=== PATIENT | female | born 1995 | race Hispanic/Latino ===

== ENCOUNTER 2019-04-08 21:33 | Emergency (ER) | payer OTHER ==
--- OUTSIDE RECORDS SUMMARY | 2019-04-08 21:35 | XMS REPORT ---
:1995 Author Organization eClinicalWorks Care Team Providers Name Role Phone Yumiko Alexander Provider Role Unavailable Allergies, Adverse Reactions, Alerts Substance Reaction Event Type N.K.D.A. Info Not Available Non Drug Allergy Problems Problem Type Condition Code Onset Dates Condition Status Assessment Routine gynecological examination Z01.419 Active Problem Irregular menses N92.6 Active Assessment BCP ( control pills) Z30.011 Active initiation Medications No Known Medications Results Name Result Date Reference Range Unit Abnormality Flag TEST URINE Summary Purpose eClinicalWorks Submission
--- OUTSIDE RECORDS SUMMARY | 2019-04-08 21:35 | XMS REPORT ---
:1995 Author Organization e[employer]Works Care Team Providers Name Role Phone Yumiko Alexander Provider Role Unavailable Allergies No Known Allergies Problems Problem Type Condition Code Onset Dates Condition Status Problem Irregular menses N92.6 Active Medications No Known Medications Results No Known Results Summary Purpose eClinicalWorks Submission
--- NOTE | 2019-04-08 23:20 | ER ---
Nurse's Notes [facility] Name: Debra Simms Age: 23 yrs Sex: Female : 1995 Arrival Date: 04/08/2019 Time: 21:35 Bed 12 Private MD: Diagnosis: Pain in right wrist Presentation: 04/08 21:40 Presenting complaint: Patient states: R wrist pain sustained from a fall 2 days ago. ca1 Limited ROM and swelling on R wrist noted. Transition of care: patient was not received from another setting of care. Onset of symptoms was April 08, 2019. Risk Assessment: Do you want to hurt yourself or someone else? Patient reports no desire to harm self or others. Initial Sepsis Screen: Does the patient meet any 2 criteria? No. Patient's initial sepsis screen is negative. Does the patient have a suspected source of infection? No. Patient's initial sepsis screen is negative. Care prior to arrival: None. 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 - Social history:: Smoking status: Patient/guardian denies using tobacco. - Ebola Screening: : Patient negative for fever greater than or equal to 101.5 degrees Fahrenheit, and additional compatible Ebola Virus Disease symptoms Patient denies exposure to infectious person Patient denies travel to an Ebola-affected area in the 21 days before illness onset No symptoms or risks identified at this time. Screenin:58 Abuse screen: Denies threats or abuse. Denies injuries from another. Nutritional aa1 screening: No deficits noted. Tuberculosis screening: No symptoms or risk factors identified. Fall Risk None identified. Assessment: 21:58 General: Appears in no apparent distress. comfortable, Behavior is calm, cooperative, aa1 appropriate for age. Pain: Complains of pain in dorsal aspect of right wrist Pain began 2-3 days ago. Is continuous. Neuro: Level of Consciousness is awake, alert, obeys commands, Oriented to person, place, time, situation, Moves all extremities. Full function Gait is steady. Cardiovascular: Pulses are palpable in right radial artery and left radial artery. Respiratory: Airway is patent Respiratory effort is even, unlabored, Respiratory pattern is regular, symmetrical. GI: No signs and/or symptoms were reported involving the gastrointestinal system. : No signs and/or symptoms were reported regarding the genitourinary system. EENT: No signs and/or symptoms were reported regarding the EENT system. Derm: Skin is intact, is healthy with good turgor, Skin is pink, warm \T\ dry. Musculoskeletal: Circulation, motion, and sensation intact. Capillary refill < 3 seconds, Range of motion: intact in all extremities. 23:28 Reassessment: Patient appears in no apparent distress at this time. Patient is alert, aa1 oriented x 3, equal unlabored respirations, skin warm/dry/pink. Discussed d/c \T\ f/u instructions with pt; denies questions or concerns at this time. Ambulatory to lobby with steady gait Patient states feeling better. Vital Signs: 21:43 BP 122 / 61; Pulse 82; Resp 17 S; Temp 97.3(O); Pulse Ox 100% on R/A; Weight 70.31 kg ca1 (R); Height 5 ft. (152.40 cm) (R); Pain 3/10; 23:28 BP 119 / 63; Pulse 79; Resp 16; Temp 97.9; Pulse Ox 99% on R/A; Pain 1/10; aa1 21:43 Body Mass Index 30.27 (70.31 kg, 152.40 cm) ca1 ED Course: 21:35 Patient arrived in ED. jg7 21:42 Triage completed. ca1 21:43 Arm band placed on right wrist. ca1 21:58 Lukasz Doan MD is Attending Physician. kdr 21:58 Anusha Conway RN is Primary Nurse. aa1 21:58 Patient has correct armband on for positive identification. Bed in low position. Call aa1 light in reach. 22:16 Piero wrap to right wrist. aa1 22:17 XRAY Wrist RIGHT 3 view In Process Unspecified. EDMS 23:28 No provider procedures requiring assistance completed. Patient did not have IV access aa1 during this emergency room visit. Administered Medications: No medications were administered Outcome: 23:20 Discharge ordered by . kdr 23:28 Discharged to home ambulatory, with significant other. aa1 23:28 Condition: good 23:28 Discharge instructions given to patient, significant other, Instructed on discharge instructions, follow up and referral plans. medication usage, Demonstrated understanding of instructions, follow-up care, medications, Prescriptions given X 1. 23:29 Patient left the ED. aa1 Signatures: Dispatcher [employer] EDNM Anusha Conway RN RN aa1 Lukasz Doan MD MD kdr Acob, Cheryl, RN RN ca1 Yelitza Jorge jg7
--- NOTE | 2019-04-08 23:20 | EDPHYS ---
Physician Documentation [facility] Name: Debra Simms Age: 23 yrs Sex: Female : 1995 Arrival Date: 04/08/2019 Time: 21:35 Bed 12 Private MD: ED Physician Lukasz Doan HPI: 04/08 22:01 This 23 yrs old Female presents to ER via Ambulatory with complaints of Wrist kdr Injury. 22:01 The patient or guardian reports injury, pain. The complaints affect the right wrist kdr diffusely. Context: The problem was sustained at home, resulted from a fall, from a standing position. Onset: The symptoms/episode began/occurred suddenly, 2 day(s) ago. Modifying factors: The symptoms are alleviated by nothing, the symptoms are aggravated by movement. Associated signs and symptoms: The patient has no apparent associated signs or symptoms. Compartment Syndrome negative for numbness, pain, tingling. The patient has not experienced similar symptoms in the past. The patient has not recently seen a physician. 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 - Social history:: Smoking status: Patient/guardian denies using tobacco. - Ebola Screening: : Patient negative for fever greater than or equal to 101.5 degrees Fahrenheit, and additional compatible Ebola Virus Disease symptoms Patient denies exposure to infectious person Patient denies travel to an Ebola-affected area in the 21 days before illness onset No symptoms or risks identified at this time. ROS: 22:01 Constitutional: Negative for fever, chills, and weight loss, Eyes: Negative for injury, kdr pain, redness, and discharge. 22:01 MS/extremity: Positive for pain, swelling, tenderness, Negative for decreased range of motion, deformity. Exam: 22:01 Constitutional: This is a well developed, well nourished patient who is awake, alert, kdr and in no acute distress. Head/Face: Normocephalic, atraumatic. 22:01 Musculoskeletal/extremity: Extremities: grossly normal except: noted in the right wrist: pain, Very mild pain - no obvious injury. Vital Signs: 21:43 BP 122 / 61; Pulse 82; Resp 17 S; Temp 97.3(O); Pulse Ox 100% on R/A; Weight 70.31 kg ca1 (R); Height 5 ft. (152.40 cm) (R); Pain 3/10; 23:28 BP 119 / 63; Pulse 79; Resp 16; Temp 97.9; Pulse Ox 99% on R/A; Pain 1/10; aa1 21:43 Body Mass Index 30.27 (70.31 kg, 152.40 cm) ca1 MDM: 23:19 Data reviewed: vital signs, nurses notes. Counseling: I had a detailed discussion with kdr the patient and/or guardian regarding: the historical points, exam findings, and any diagnostic results supporting the discharge/admit diagnosis, radiology results, the need for outpatient follow up. ED course: May be slight buckle fracture of distal radius and ulna. 23:20 Patient medically screened. kdr 04/08 21:56 Order name: XRAY Wrist RIGHT 3 view ca1 04/08 22:07 Order name: Piero wrap-joint: right wrist; Complete Time: 22:16 kdr Administered Medications: No medications were administered Disposition: 04/08/19 23:20 Discharged to Home. Impression: Pain in right wrist. - Condition is Stable. - Discharge Instructions: Joint Pain, Wrist Pain, [id number]. - Prescriptions for Tramadol 50 mg Oral Tablet - take 1 tablet by ORAL route every 8 hours as needed; 12 tablet. - Medication Reconciliation Form, Thank You Letter, Prescription Opioid Use form. - Follow up: Private Physician; When: 2 - 3 days; Reason: If symptoms return, Further diagnostic work-up, Recheck today's complaints, Continuance of care, Re-evaluation by your physician. - Problem is new. - Symptoms have improved. Signatures: Dispatcher [employer] EDMS Anusha Conway RN RN aa1 Lukasz Doan MD MD kdr Reta Babcock RN RN ca1 Corrections: (The following items were deleted from the chart) 23:28 23:19 Splint - Volar Wrist Splint ordered. kdr aa1 23:29 23:20 04/08/2019 23:20 Discharged to Home. Impression: Pain in right wrist. Condition aa1 is Stable. Forms are Medication Reconciliation Form, Thank You Letter, Antibiotic Education, Prescription Opioid Use. Follow up: Private Physician; When: 2 - 3 days; Reason: If symptoms return, Further diagnostic work-up, Recheck today's complaints, Continuance of care, Re-evaluation by your physician. Problem is new. Symptoms have improved. kdr
[2019-04-08 23:59] VITALS: BP 119/63; TEMP 97.9; O2SAT 99
--- NOTE | 2019-04-09 07:56 | RAD REPORT ---
EXAM DESCRIPTION: RAD - Wrist Right 3 View - 04/08/2019 10:16 pm CLINICAL HISTORY: Persistent right wrist pain following fall 2 days earlier COMPARISON: None. FINDINGS: No fracture is identified. There is no dislocation or periosteal reaction noted. Epiphyses and growth plates are Normal in appearance. No foreign body or other soft tissue abnormality. IMPRESSION: Negative right wrist examination.
== END 2019-04-08 23:29 | disposition home or self-care (01) ==
LOC: ER 21:33
DX: M25.531 Pain in right wrist (principal); W18.30XA Fall on same level, unspecified, initial encounter; Y93.9 Activity, unspecified; Y92.9 Unspecified place or not applicable
CPT/HCPCS: 99283

== ENCOUNTER 2019-08-27 10:12 | Emergency (ER) | payer OTHER ==
--- OUTSIDE RECORDS SUMMARY | 2019-08-27 10:15 | XMS REPORT ---
:1995 Author Organization [facility] t Address [address] [place] [address] Care Team Providers Name Role Phone Unavailable Unavailable Unavailable Problems Condition Condition Condition Status Onset Resolution Last Treating Co mments Source Name Details Category Date Date Treatment Clinician Date Irregular Irregular Problem Active [facility] ent Clinics Allergies, Adverse Reactions, Alerts This patient has no known allergies or adverse reactions. Medications This patient has no known medications. Procedures This patient has no known procedures. Encounters Start End Encounter Admission Attending Care Care Encounter Source Date/Time Date/Time Type Type Clinicians Facility Department ID 2017-12-23 2017-12-23 Outpatient Yuliya Leon [id number] [facility] 14:28:00 14:28:00 [facility] Clinics 2017-11-25 2017-11-25 Outpatient [facility] [id number] [facility] 14:30:00 14:30:00 [facility] ent Clinics Results This patient has no known results.
[2019-08-27 10:57] VITALS: BP 98/69; TEMP 97.5; O2SAT 99
--- NOTE | 2019-08-29 17:51 | EDPHYS ---
Physician Documentation [facility] Name: Debra Simms Age: 24 yrs Sex: Female : 1995 Arrival Date: 08/27/2019 Time: 10:14 Bed 8 Private MD: ED Physician Lukasz Doan HPI: 08/26 13:14 This 24 yrs old Female presents to ER via Ambulatory with complaints of Wrist jr8 Pain. 13:14 The patient or guardian reports decreased range of motion, pain. The complaints affect jr8 the right wrist diffusely. Onset: The symptoms/episode began/occurred acutely, today. Modifying factors: The symptoms are alleviated by nothing, the symptoms are aggravated by movement. Associated signs and symptoms: The patient has no apparent associated signs or symptoms. The patient has experienced a previous episode. The patient has not recently seen a physician. Patient stated that she contused and sprained wrist about 2 months ago. Had two images completed both negative for fracture. Saw Ortho and was given splint. Had been feeling better until today. Woke up with pain to wrist and decreased ROM. Denies injuring wrist again . 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 - Social history:: Smoking status: Patient denies any tobacco usage or history of. ROS: 13:14 Eyes: Negative for injury, pain, redness, and discharge, ENT: Negative for injury, jr8 pain, and discharge, Neck: Negative for injury, pain, and swelling, Cardiovascular: Negative for chest pain, palpitations, and edema, Respiratory: Negative for shortness of breath, cough, wheezing, and pleuritic chest pain, Abdomen/GI: Negative for abdominal pain, nausea, vomiting, diarrhea, and constipation, Back: Negative for injury and pain, Skin: Negative for injury, rash, and discoloration, Neuro: Negative for headache, weakness, numbness, tingling, and seizure. 13:14 MS/extremity: Positive for decreased range of motion, pain, tenderness, of the right wrist. Exam: 13:14 Constitutional: This is a well developed, well nourished patient who is awake, alert, jr8 and in no acute distress. Cardiovascular: Regular rate and rhythm with a normal S1 and S2. No gallops, murmurs, or rubs. Normal PMI, no JVD. No pulse deficits. Respiratory: Lungs have equal breath sounds bilaterally, clear to auscultation and percussion. No rales, rhonchi or wheezes noted. No increased work of breathing, no retractions or nasal flaring. Skin: Warm, dry with normal turgor. Normal color with no rashes, no lesions, and no evidence of cellulitis. Neuro: Awake and alert, GCS 15, oriented to person, place, time, and situation. Cranial nerves II-XII grossly intact. Motor strength 5/5 in all extremities. Sensory grossly intact. Cerebellar exam normal. Normal gait. 13:14 Musculoskeletal/extremity: Extremities: grossly normal except: noted in the right wrist: Mild tenderness to right wrist and the radial/ulnar ligament region. Full ROM present but with mild pain. No swelling, erythema, or other external signs of trauma noted, Circulation is intact in all extremities. Pulses: noted to be 2+ in the bilateral radial, brachial, femoral, popliteal, posterior tibial and and dorsalis pedis arteries., Sensation intact. Vital Signs: 10:21 BP 98 / 69; Pulse 71; Resp 15; Temp 97.5(TE); Pulse Ox 99% on R/A; Weight 68.04 kg; ss Height 5 ft. 0 in. (152.40 cm); Pain 6/10; 10:54 BP 107 / 78; Pulse 68; Resp 14; Temp 98.3; Pulse Ox 99% on R/A; Pain 4/10; ch 10:21 Body Mass Index 29.29 (68.04 kg, 152.40 cm) ss MDM: 10:29 Patient medically screened. jr8 10:29 Data reviewed: vital signs, nurses notes, and as a result, I will discharge patient. 8 Data interpreted: Pulse oximetry: on room air is 99 %. Interpretation: normal. Counseling: I had a detailed discussion with the patient and/or guardian regarding: the historical points, exam findings, and any diagnostic results supporting the discharge/admit diagnosis, the need for outpatient follow up, a orthopedic surgeon, to return to the emergency department if symptoms worsen or persist or if there are any questions or concerns that arise at home. ED course: Discussed with patient that plain film at this time will not do us much good as she has not re injured the wrist as far as she knows. Recommended going back into her brace and will put her on NSAID based product. Needs to f/u again with Dr. [facility]. Patient good with this. . Administered Medications: No medications were administered Disposition: 15:34 Co-signature as Attending Physician, Lukasz Doan MD I agree with the assessment and kdr plan of care. Disposition: 08/27/19 10:41 Discharged to Home. Impression: Pain in right wrist. - Condition is Stable. - Discharge Instructions: Wrist Pain. - Prescriptions for meloxicam 15 mg Oral tablet - take 1 tablet by ORAL route once daily As needed; 20 tablet. - Work release form, Medication Reconciliation Form, Thank You Letter, Antibiotic Education, Prescription Opioid Use form. - Follow up: Mayco Gutierrez MD; When: 2 - 3 days; Reason: Recheck today's complaints, Continuance of care, Re-evaluation by your physician. - Problem is new. - Symptoms have improved. Signatures: Lukasz Doan MD MD [facility] Kathryn Figueroa RN RN ss Elias Pedroza PA PA jr8 Corrections: (The following items were deleted from the chart) 10:52 10:41 08/27/2019 10:41 Discharged to Home. Impression: Pain in right wrist. Condition ss is Stable. Forms are Medication Reconciliation Form, Thank You Letter, Antibiotic Education, Prescription Opioid Use. Follow up: Mayco Gutierrez; When: 2 - 3 days; Reason: Recheck today's complaints, Continuance of care, Re-evaluation by your physician. Problem is new. Symptoms have improved. jr8
--- NOTE | 2019-08-29 17:51 | ER ---
Nurse's Notes [facility] Name: Debra Simms Age: 24 yrs Sex: Female : 1995 Arrival Date: 08/27/2019 Time: 10:14 Bed 8 Private MD: Diagnosis: Pain in right wrist Presentation: 08/26 10:21 Chief complaint: Patient states: R wrist pain that began while changing shirt last ss night. Pt reports a previous injury in March of 2019, but has not had pain for the last month until yesterday. Coronavirus screen: Surgical mask placed on patient. Patient moved to private room, placed in contact and droplet isolation with eye protection until further assessment. Patient denies a cough. Patient denies shortness of breath or difficulty breathing. Patient denies measured and/or subjective temperature greater than 100.4F prior to today's visit. Patient denies travel on a cruise ship or to a country the [facility] currently lists as an affected area. Patient denies contact with known and/or suspected case of COVID-19. Ebola Screen: Patient denies exposure to infectious person. Patient denies travel to an Ebola-affected area in the 21 days before illness onset. Initial Sepsis Screen: Does the patient meet any 2 criteria? No. Patient's initial sepsis screen is negative. Does the patient have a suspected source of infection? No. Patient's initial sepsis screen is negative. Risk Assessment: Do you want to hurt yourself or someone else? Patient reports no desire to harm self or others. Onset of symptoms was August 26, 2019. 10:21 Method Of Arrival: Ambulatory ss 10:21 Acuity: NONA 4 ss Triage Assessment: 09:00 General: Appears in no apparent distress. comfortable, Behavior is calm, cooperative, ch appropriate for age. 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 - Social history:: Smoking status: Patient denies any tobacco usage or history of. Screenin:54 Abuse screen: Denies threats or abuse. Denies injuries from another. Nutritional ch screening: No deficits noted. Tuberculosis screening: No symptoms or risk factors identified. Fall Risk None identified. Assessment: 10:54 Reassessment: Patient appears in no apparent distress at this time. Patient and/or ch family updated on plan of care and expected duration. Pain level reassessed. Patient is alert, oriented x 3, equal unlabored respirations, skin warm/dry/pink. General: Appears in no apparent distress. comfortable. Pain: Complains of pain in lateral aspect of right wrist, medial aspect of right wrist, dorsal aspect of right wrist and palmar aspect of right wrist Pain currently is 6 out of 10 on a pain scale. Pain began suddenly. Neuro: No deficits noted. Cardiovascular: No deficits noted. Respiratory: No deficits noted. Derm: Skin is pink, warm \T\ dry. Vital Signs: 10:21 BP 98 / 69; Pulse 71; Resp 15; Temp 97.5(TE); Pulse Ox 99% on R/A; Weight 68.04 kg; ss Height 5 ft. 0 in. (152.40 cm); Pain 6/10; 10:54 BP 107 / 78; Pulse 68; Resp 14; Temp 98.3; Pulse Ox 99% on R/A; Pain 4/10; ch 10:21 Body Mass Index 29.29 (68.04 kg, 152.40 cm) ss ED Course: 10:14 Patient arrived in ED. as 10:21 Lukasz Doan MD is Attending Physician. kdr 10:23 Triage completed. ss 10:23 Arm band placed on right wrist. ss 10:24 Eli[facility] Pedroza [facility] jr8 10:25 Patient has correct armband on for positive identification. Bed in low position. Call light in reach. Side rails up X 1. Pulse ox on. Door closed. Noise minimized. 10:41 Mayco Gutierrez MD is Referral Physician. jr8 10:48 Komal Rizzo, ANA is Primary Nurse. ch 10:56 No provider procedures requiring assistance completed. Patient did not have IV access during this emergency room visit. Administered Medications: No medications were administered Outcome: 10:41 Discharge ordered by . jr8 10:52 Patient left the ED. ss 10:56 Discharged to home ambulatory. ch 10:56 Condition: good 10:56 Discharge instructions given to patient, Instructed on discharge instructions, follow up and referral plans. medication usage, Demonstrated understanding of instructions, follow-up care, medications, Prescriptions given X 1. Signatures: Komal Rizzo RN RN Lukasz Doan MD MD kdr Martinez, Amelia as Smirch, Shelby, RN RN Elias Pedroza PA PA jr8
== END 2019-08-27 10:52 | disposition home or self-care (01) ==
LOC: ER 10:12
DX: M25.531 Pain in right wrist (principal)
CPT/HCPCS: 99283